=== PATIENT | male | born 1940 | race Caucasian/White ===

== ENCOUNTER 2017-06-23 06:55 | Inpatient (IN) | payer MEDICARE, OTHER ==
[~2017-06-23] VITALS: Ht 175.2 cm; Wt 93.2 kg
[2017-06-23] VITALS (15 sets, daily range): BP systolic 96–142; BP diastolic 53–95
--- NOTE | ~2017-06-23 | PR ---
[place], [place] PROGRESS NOTE NAME: SORAIDA ACOSTA UNIT #: [id number] ROOM: [facility] DOCTOR: RAUL PAULSON MD BIRTHDATE: [birth year] DOS: 06/26/2017 He is sitting in a recliner and is on BiPAP and is modestly short of breath. He is coughing up some phlegm, but no hemoptysis. He has no fever or chills and has not had any palpitations. PHYSICAL EXAMINATION: VITAL SIGNS: Temperature 98.1 degrees, blood pressure is 144/79. NECK: JVP is normal. CARDIOVASCULAR: Auscultation revealed distant heart sounds, no murmurs, no rub. There is no edema in the lower extremities. RESPIRATION: Rate is 22 per minute. Breath sounds are severely diminished with inspiratory and expiratory adventitious sounds. LABORATORY DATA: Monitor shows normal sinus rhythm. IMPRESSION: 1. Persistent atrial fibrillation/he is back in sinus rhythm now and he is on amiodarone, which he is tolerating nicely. 2. No evidence of heart failure. 3. Chronic obstructive pulmonary disease/lung disease, is quite severe and he is vent, on BiPAP support. No new recommendations. RAUL PAULSON MD CM:PNTRANS [id number] RAUL PAULSON MD 06/26/17 1157 interface
--- NOTE | ~2017-06-23 | CON ---
[place], [place] REPORT OF CONSULTATION NAME: SORAIDA ACOSTA UNIT #: [id number] ROOM: 530 DOCTOR: RA ROLON MDFLORIAN BIRTHDATE: [birth year] DOS: 06/24/2017 CONSULTATION REQUESTED BY: Hospitalist service. REASON FOR CONSULTATION: For assessment of symptoms of shortness of breath. HISTORY OF PRESENT ILLNESS: A 76-year-old white male, unknown to me with past known history of coronary artery disease as well as coronary artery bypass grafting in the past. The patient was seen in the Emergency Room. On the of this month as the patient woke up with severe pain, which he described at the retrosternal area with the diaphoresis. The patient came into the Emergency Room. He has been advised for hospitalization but the patient left against medical advice. As the patient went home, he took aspirin at home, stated partial relief of the symptoms, but the pain was not resolved completely. He was brought back to the hospital as he was convinced by the son. The patient come back to the hospital for similar symptoms. The patient was also noted symptoms of shortness breath, which was noted with [id number] exertion. Denies any symptoms of chest pain at the present time of the assessment. As the patient is treated in Intensive Care Unit, he does have mild cough with small amount of sputum expectoration. Some wheezing was also reported by the patient. The patient denies symptoms of chest trauma. REVIEW OF SYSTEMS: CONSTITUTIONAL SYMPTOMS: Fatigue and tiredness reported without symptoms of fever or chills. EYES: Denies any burning, redness, tenderness. EARS, NOSE, AND THROAT: Earache or other discharge. No sore throat, hoarseness, otalgia, postnasal drainage or epistaxis. CARDIOVASCULAR: Denies any palpitations. Denies any pain of the lower extremity. Current pain, which he described to be possible consistent with atypical chest pain was reported by the patient on this admission. GASTROINTESTINAL: No dysphagia, nausea, vomiting, diarrhea, abdominal pain, hematemesis, melena, or hematochezia. SKIN: Denies abnormal lesions or rashes. GENITOURINARY: No dysuria, suprapubic pain, or hematuria. MUSCULOSKELETAL: There were no joint pains. CENTRAL NERVOUS SYSTEM: There was no dizziness, headache, diplopia or syncopal episodes. Remaining systems were reviewed, they were noted all negative. PAST MEDICAL HISTORY: 1. Atrial fibrillation. 2. Coronary artery bypass grafting. 3. History of chronic obstructive pulmonary disease was also reported. 4. He was exposed to the asbestos. 5. Obesity. 6. History of right bundle branch block. PAST SURGICAL HISTORY: [place], [place] REPORT OF CONSULTATION NAME: SORAIDA ACOSTA UNIT #: [id number] ROOM: [facility] DOCTOR: FLORIAN HANSON MD BIRTHDATE: [birth year] 1. Coronary artery bypass grafting, 5 vessels several years ago. 2. Removal of metal from the eye. 3. Cardiac catheterization. SOCIAL HISTORY: The patient stated that he is , has one child lives at home. 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 Denies any history of alcohol use, illicit drug use or any tobacco use. FAMILY HISTORY: Father at the age 5555 years old from myocardial infarction. Mother at age 8383 years old from old age. HOME MEDICATIONS: None reported by the patient. DRUG ALLERGIES: No known drug allergies. PHYSICAL EXAMINATION: GENERAL: This is a 76-year-old male who has been currently sitting on the bed without any acute distress at time of assessment this morning. Height of 5 feet 9 inches, weight of 219 pounds, BMI 32.2. VITAL SIGNS: For the patient, which was recorded showed the heart rate was noted on admission with atrial fibrillation, rapid ventricular response of 162 beats per minute. Temperature normal, respiratory rate 25 at that time, 20 later. Heart rate at this time are noted 86. The blood pressure of patient ranged between 160/95-142/80. Intake is 1400 mL, output 1300 mL, since admission. Pulse oxygen saturation on 2 liters of nasal cannula for the patient was 91% saturation on room air, admission was 93% saturation. HEENT: Head was atraumatic. Eyes nonicterus. NECK: Supple. CARDIOVASCULAR: S1, S2 audible. LUNGS: Scattered crackles of the lung was noted with occasional wheezing. ABDOMEN: Soft, nontender, moderate obesity. EXTREMITIES: Without any edema, clubbing or cyanosis. CENTRAL NERVOUS SYSTEM: Cranial nerves 2-12 intact. MUSCULOSKELETAL: Without any acute deformities. LABORATORY DATA: CBC of the patient that was done yesterday on admission, WBC count 12.8, remaining CBC was completely normal. CMP yesterday on admission, normal BUN and creatinine. Troponin first set was 1.52. PT/PTT yesterday normal. Second set of troponin elevated as 2.25 and a max troponin of 2.47 was also noted yesterday as well. The CMP of the patient that was done this morning shows BUN and creatinine remains normal. Phosphorus 2.1. CBC this morning, WBC count 11.2, hemoglobin and hematocrit normal, platelet count remains normal. PT and PTT for the patient this morning was noted as normal. Arterial blood gas that I obtained 2 liters shows pH of 7.33, pCO2 of 56, pO2 of 67.6 on 2 liter nasal cannula. The blood culture, which was done on 06/22/2017 on his previous earlier assessment in the ER was noted as no bacterial growth. The review of the chest x-ray of the patient on the and of this month reviewed and shows basilar area of atelectasis, small pleural fluid was also noted. Chest x-ray that was done for the patient yesterday as well shows mild hyperinflation with persistent small pleural effusions. [place], [place] REPORT OF CONSULTATION NAME: SORAIDA ACOSTA UNIT #: [id number] ROOM: [facility] DOCTOR: RA ROLON MDFLORIAN BIRTHDATE: [birth year] IMPRESSION: 1. The patient will be currently admitted to the hospital and noted with acute hypercapnic and hypoxic respiratory failure requiring oxygen supplementation 2 liters nasal cannula to maintain normal saturation of oxygen with a pO2 noted only 62 on that. 2. The patient with non-ST segment elevation myocardial infarction, currently treated with conservative medical management at this time with therapeutic Lovenox. We will receive the unfractionated heparin therapeutic dose. 3. Atrial fibrillation with rapid ventricular response, most likely cardiac etiology. The patient had a CT scan of the chest that was done in 2015, precisely 04/12. It was reviewed at that time showed evidence of bilateral pleural fluid and evidence of a cyst was present in the right mid lung for the patient of unknown significance. There were no abnormal nodules visible. 4. Past history of this patient at this time with possibility of COPD may be considered, but there was no active acute exacerbation. PLAN OF MANAGEMENT: Continue his current conducted treatment with atrial fibrillation and non-ST segment elevation myocardial infarction. Start the patient BiPAP setting of 03/17 for the patient to improve his respiratory failure support. Bronchodilators only as needed. Oxygen supplementation to maintain saturation oxygen 90% greater, other time known use of BiPAP. Usual care. Supportive therapy, plan of management and care. Additional treatment changes will be made for the patient based on the progression of the illness. Thanks for allowing me to participate in the care of this patient. FLORIAN KNAPP MD CM:CONSTR:REPORT OF CONSULTATION 1133 07/06/17 0954 interface
--- NOTE | ~2017-06-23 | PR ---
[place], [place] PROGRESS NOTE NAME: SORAIDA ACOSTA UNIT #: [id number] ROOM: 530 DOCTOR: RA ROLON MD,FLORIAN BIRTHDATE: [birth year] DOS: 06/30/2017 SUBJECTIVE: He has been comfortably resting on the bed. The patient's sputum expectoration still noted intermittently, moderate amount of purulent. Denies symptoms of chest pain or shortness of breath. The patient is improving. General weakness and fatigue were reported, which are resolving. OBJECTIVE: VITAL SIGNS: This morning, normal temperature, respiratory rate 20, heart rate 69, blood pressure 120/69. The pulse oxygen saturation on 4 liters nasal cannula 92% saturation. HEENT: No acute change. NECK: Supple. CARDIOVASCULAR: S1, S2 audible. LUNGS: Without any wheeze or crackles at this time. Breaths are noted mildly diminished bilaterally. ABDOMEN: Soft, nontender. EXTREMITIES: Without any edema. LABORATORY DATA: CBC: WBC count 12.1 today. IMPRESSION: 1. Acute pneumonia for the patient that was noted with superimposed congestive heart failure, improving gradually. 2. The patient with resolving acute hypoxic respiratory failure as well. Still require significant oxygen supplementation. 3. Recent non-ST segment elevation myocardial infarction. PLAN OF TREATMENT: Discharge planning, possible consideration for the retirement facility as the patient refused to go to the LTAC. Continuation other supportive therapy, plan of management. FLORIAN KNAPP MD CM:PNTRANS 1154 FLORIAN ROLON MD 07/01/17 0038 interface
--- NOTE | ~2017-06-23 | PR ---
[place], [place] PROGRESS NOTE NAME: SORAIDA ACOSTA UNIT #: [id number] ROOM: [facility] DOCTOR: RA ROLON MD,FLORIAN BIRTHDATE: [birth year] DOS: 06/25/2017 SUBJECTIVE: The patient was noted comfortable at this time, but still noted excessive cough, which has been noted with sputum expectoration. The patient denies symptoms of hemoptysis or any chest pain. He has used the BiPAP yesterday for the medical management of respiratory failure. He denies any symptoms of hematuria. He denies symptoms of hemoptysis. Remaining systems were reviewed. The patient, they were noted all negative. OBJECTIVE: VITAL SIGNS: For the patient, which has been recorded. The patient shows the temperature noted as 101 degrees Fahrenheit yesterday and afebrile this morning, respiratory rate 20, heart rate 76, blood pressure 112/57, pulse oxygen saturation recorded as 96% on 4 liters nasal cannula. HEENT: Examination shows head was atraumatic. Eyes, nonicterus. NECK: Supple. Moderate obesity. CARDIOVASCULAR: S1, S2 audible. LUNGS: Moderate decreased breath sounds without any wheezing or crackles at this time. Breaths are noted moderately decreased bilaterally. ABDOMEN: Soft, nontender. EXTREMITIES: Without any acute edema. LABORATORY DATA: CBC, WBC count 11.4, hemoglobin 13.5, hematocrit 42.2, platelet count was normal. Sputum culture was noted as a Haemophilus influenzae, which had been isolated beta lactamase negative species. IMPRESSION: 1. Fever. 2. Acute bronchitis with influenza infection. 3. Severe debility. 4. Acute hypercapnic and hypoxic respiratory failure. 5. Moderate obesity. 6. Non-ST segment elevation myocardial infarction as well. PLAN OF THERAPY: The patient will be started on the antibiotic for the current medical management of bronchitis. Continuation of the anticoagulation per Cardiology services. With use of the Coumadin and with the Lovenox, the patient's atrial fibrillation resolved. 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 Xopenex will be continued. Other supportive therapy, plan of management and care plan. [place], [place] PROGRESS NOTE NAME: SORAIDA ACOSTA UNIT #: [id number] ROOM: [facility] DOCTOR: RA ROLON MD,FLORIAN BIRTHDATE: [birth year] FLORIAN KNAPP MD CM:PNTRANS [id number] FLORIAN ROLON MD 06/26/17 0421 interface
--- NOTE | ~2017-06-23 | PR ---
[place], [place] PROGRESS NOTE NAME: SORAIDA ACOSTA UNIT #: [id number] ROOM: 530 DOCTOR: BETHEL DIANE MD BIRTHDATE: [birth year] DOS: 07/01/2017 SUBJECTIVE: The patient examined. The patient has been evaluated to be transferred to skilled care facility. No cardiac issues. Heart rate is very well controlled. OBJECTIVE: VITAL SIGNS: Blood pressure is 124/73, pulse ox is excellent 92%. NECK: Supple. No JVD. LUNGS: Diminished breath sounds. HEART: Heart sounds are regular. NEUROLOGIC: The patient appears to be stable. The patient is being followed by Dr. Ludwig and being followed up. LABORATORY DATA: White count is 12.1. IMPRESSION: Acute pneumonia, history of atrial fibrillation, hypoxic respiratory failure, and history of recent non-STEMI. PLAN: Continue with the present medication. Heart rate appears to be stable. No new suggestions and followup. BETHEL DIANE MD CM:PNTRANS [id number] BETHEL DIANE MD 07/01/17 1344 interface
--- NOTE | ~2017-06-23 | PR ---
[place], [place] PROGRESS NOTE NAME: SORAIDA ACOSTA UNIT #: [id number] ROOM: [facility] DOCTOR: RA ROLON MD,FLORIAN BIRTHDATE: [birth year] DOS: 06/27/2017 PULMONARY FOLLOWUP SUBJECTIVE: The patient was noted comfortable at this time, resting on the bed, used the BiPAP last night using oxygen supplementation 50% Venturi mask. Denies symptoms of chest pain or any hemoptysis. Denies abdominal pain. Denies any pain of the lower extremity. The patient noted mostly sitting on the chair or the bed. General weakness and fatigue persisted. Denies any dysphagia. Remaining systems were reviewed. They were noted all negative. OBJECTIVE: VITAL SIGNS: Normal temperature, respiratory rate 22, heart rate 84, blood pressure 145/90. Pulse oxygen saturation on 40% Venturi mask was 92% saturation with the BiPAP was 98% saturation. HEENT: The patient shows head was atraumatic. Eyes nonicterus. NECK: Supple. CARDIOVASCULAR: S1, S2 was audible. LUNGS: Noted with moderate decreased breath sounds, scattered crackles of the lung mid to lower portion. ABDOMEN: Soft, nontender. EXTREMITIES: Shows mild edema with no skin lesions or rashes. MUSCULOSKELETAL SYMPTOMS without any acute deformities. CENTRAL NERVOUS SYSTEM: Cranial nerves 2-12 intact without any focal deficit. LABORATORY DATA: CBC today: WBC count 12,000, hemoglobin 12.2, hematocrit 38.1, platelet count 186,000. CMP this morning, glucose 121, BUN 14, creatinine was normal, sodium 135, CO2 of 39. The culture of the sputum finalized the gram negative rather beta lactamase negative Haemophilus influenza. IMPRESSION: 1. The patient with acute congestive heart failure, persistent severe acute hypoxic respiratory failure. 2. Non-ST segment elevation myocardial infarction. 3. Haemophilus influenzae isolation possible pneumonia versus acute bronchitis. The pneumonia difficult to be excluded recurrent abnormal chest x-ray. 4. Moderate obesity as well. 5. Suspicion of obstructive sleep apnea disorder, clinically. PLAN OF MANAGEMENT: The patient would be continued the current antibiotics, bronchodilators, diuretics to be given for the patient to help improve the congestive heart failure, and pulmonary edema. The patient could be considered for long-term acute care facility assessment for this patient as well. If only conservative treatment at this time would be done for this patient for the management of acute myocardial infarction. Physical therapy, the patient as tolerated. Other supportive plan of management. Continue adjust the medication based on the new information. [place], [place] PROGRESS NOTE NAME: SORAIDA ACOSTA UNIT #: [id number] ROOM: [facility] DOCTOR: FLORIAN HANSON MD BIRTHDATE: [birth year] FLORIAN KNAPP MD CM:PNTRANS [id number] FLORIAN ROLON MD 06/27/17 1420 interface
--- NOTE | ~2017-06-23 | PR ---
[place], [place] PROGRESS NOTE NAME: SORAIDA ACOSTA UNIT #: [id number] ROOM: [facility] DOCTOR: RAUL PAULSON MD BIRTHDATE: [birth year] DOS: 06/24/2017 SUBJECTIVE: This patient was admitted a couple of days ago with atrial fibrillation with rapid ventricular rate and respiratory failure due to underlying lung disease, compounded by infection. Today he was somewhat more hypoxic through the night and has been on BiPAP. He is alert. He has no chest pain or palpitation. Monitor shows normal sinus rhythm with frequent PACs and right bundle-branch block. OBJECTIVE: NECK: JVP is normal. LUNGS: Breath sounds are severely diminished with rhonchi. EXTREMITIES: No edema in lower extremities. LABORATORY DATA: Monitor shows normal sinus rhythm with PACs, rate is in the 80s. RECOMMENDATIONS: 1. IV diltiazem has been discontinued. I would recommend oral diltiazem 60 mg t.i.d. 2. Amiodarone to maintain normal sinus rhythm should be continued. 3. Warfarin because of high EVERETT score, because of concomitant use of amiodarone, warfarin dose is likely to be little smaller. RAUL PAULSON MD CM:PNTRANS [id number] RAUL PAULSON MD 06/24/17 1353 interface
--- NOTE | ~2017-06-23 | PR ---
[place], [place] PROGRESS NOTE NAME: SORAIDA ACOSTA UNIT #: [id number] ROOM: [facility] DOCTOR: RA ROLON MD,FLORIAN BIRTHDATE: [birth year] DOS: 06/28/2017 SUBJECTIVE: He has been coughing, which has been gradually improving. Still requires oxygen supplementation with the nasal cannula. Denies symptoms of chest pain or hemoptysis. Denies symptoms of abdominal pain. He has been asked about the long-term care facility placement, but the patient refused to do so. He has been continued medical management of congestive heart failure as well as acute bronchitis, suspected pneumonia with Haemophilus influenzae. The oxygen supplementation has been noted partially decreased for the patient in the last 24 hours. This morning, the patient was noted on oxygen supplementation nasal cannula, resting comfortably on the bed. He denies any symptoms of dizziness, headache. Remaining systems were reviewed and that were noted all negative. OBJECTIVE: VITAL SIGNS: Shows normal temperature, respiratory rate 18, heart rate 87, blood pressure 135/82. Pulse oxygen saturation on 3 liters nasal cannula 95% saturation. HEENT: Examination shows head was atraumatic. Eyes nonicterus. NECK: Supple. CARDIOVASCULAR: S1, S2 audible. LUNGS: Noted with scattered crackles of the lung. There was no wheezing. ABDOMEN: Soft, nontender. Bowel sounds present. EXTREMITIES: Without any acute edema. MUSCULOSKELETAL: Without any acute deformities. SKIN: No lesions or rashes. CENTRAL NERVOUS SYSTEM: No focal deficit. Cranial nerves 2-12 intact. LABORATORY DATA: CMP this morning, BUN 17, creatinine was normal, sodium 135. CV patient today to the count 11.7, hemoglobin 14.5, hematocrit 44.4. IMPRESSION: 1. The patient who has been noted with resolving acute severe hypoxic respiratory failure. 2. Non-ST segment elevation myocardial infarction. 3. Acute congestive heart failure. 4. Possibility of pneumonia and acute tracheobronchitis. The patient Haemophilus influenza infection. PLAN OF MANAGEMENT: Repeat chest x-ray was ordered at this time. The patient has been continued on the diuretic intravenously as well as Xarelto for his atrial fibrillation as well. Continue the conservative treatment non-ST segment elevation myocardial infarction. Physical therapy, the patient would be given as tolerated. Other supportive therapy, plan of management and care plan. [place], [place] PROGRESS NOTE NAME: SORAIDA ACOSTA UNIT #: [id number] ROOM: [facility] DOCTOR: RA ROLON MD,FLORIAN BIRTHDATE: [birth year] FLORIAN KNAPP MD CM:PNTRANS [id number] 1343 FLORIAN ROLON MD 06/28/17 1343 interface
--- NOTE | ~2017-06-23 | PR ---
[place], [place] PROGRESS NOTE NAME: SORAIDA ACOSTA UNIT #: [id number] ROOM: 530 DOCTOR: RA ROLON MD,FLORIAN BIRTHDATE: [birth year] DOS: 06/29/2017 SUBJECTIVE: The patient was noted comfortable at this time, has expectorated significant amount of sputum in the last 24 hours. Shortness of breath has been improving. There were no symptoms of chest pain or any abdominal pain. OBJECTIVE: VITAL SIGNS: For the patient, which has been recorded showed the temperature noted normal, respiratory 18, heart rate 85, blood pressure 118/80, pulse ox saturation on 4 L nasal cannula 93% saturation. HEENT: No acute change. NECK: Supple. CARDIOVASCULAR: No added sounds. LUNGS: Crackles noted in the right lung base. ABDOMEN: Soft, nontender. EXTREMITIES: Without any acute edema. LABORATORY DATA: CBC count 12.1, otherwise normal CBC. Chest x-ray that was done yesterday I ordered shows area of infiltration, consolidation of right lower lung with improvement noted and congestive heart failure and pleural effusion. IMPRESSION: The patient could have pneumonia with acute bronchitis, resolving acute respiratory failure secondary to congestive heart failure, recent non-ST segment elevation myocardial infarction. PLAN OF TREATMENT: Antibiotic. The patient could be switched to the Ceftin 500 mg p.o. b.i.d. or Rocephin to be continued at this time. Continue other supportive therapy, plan of management. Usual care, other plan of therapy and care. FLORIAN KNAPP MD CM:PNTRANS [phone] FLORIAN ROLON MD 06/29/17 225 interface
--- NOTE | ~2017-06-23 | PR ---
[place], [place] PROGRESS NOTE NAME: SORAIDA ACOSTA UNIT #: [id number] ROOM: 530 DOCTOR: RA ROLON MD,FLORIAN BIRTHDATE: [birth year] DOS: 07/01/2017 PULMONARY FOLLOWUP SUBJECTIVE: The patient is comfortable, resting on the chair without any acute shortness of breath. Denies symptoms of chest pain, hemoptysis, or abdominal pain. The cough has been noted with progressive reduction as well as sputum expectoration also reported by the patient. OBJECTIVE: VITAL SIGNS: For the patient which was recorded, the patient showed the temperature patient noted as normal. The respiratory rate of the patient recorded as 18, heart rate 78, blood pressure 124/73. The pulse oxygen saturation on a 3.5 L nasal cannula 92% saturation. HEENT: No new change. NECK: Supple. CARDIOVASCULAR: S1, S2 audible. LUNGS: Without any crackles, rhonchi, or wheezing at this time except in the right mid lung. ABDOMEN: Soft, nontender. EXTREMITIES: Without any acute edema. IMPRESSION: Resolving acute pneumonia, gradually; Haemophilus influenza infection; acute tracheobronchitis, marked improvement; and acute congestive heart failure. Recent non-ST segment myocardial infarction, treated medically, remained stable. PLAN OF THERAPY: No changes in the plan of management at this time. The patient was planned for discharge to the half-way facility upon acceptance and authorization from the insurance. No immediate change in the treatment will be necessary. A chest x-ray will be ordered for the patient to assess the patient's progression of the pneumonia. FLORIAN KNAPP MD CM:PNTRANS [phone] FLORIAN ROLON MD 07/01/172043 interface
--- NOTE | ~2017-06-23 | CON ---
[place], [place] REPORT OF CONSULTATION NAME: SORAIDA ACOSTA UNIT #: [id number] ROOM: 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 He has right bundle-branch block. He had 5-vessel coronary artery bypass graft surgery in the remote past and has never smoked cigarettes, does not use alcoholic beverages. He had been on several medications previously and had quit taking all of them ____. He was admitted to the hospital through the Emergency Department where he presented with some chest heaviness and pressure and quite a bit of shortness of breath. He was diagnosed with atrial fibrillation the day before this admission, apparently did not want to stay in the hospital, but came back because of worsening symptoms. He was very hypoxic on admission. He is not aware of his heart beating fast. He has no chest pain now. He has a cough with some expectoration. No swelling in the legs. He is very short of breath even at rest. He has been on IV diltiazem to slow down the ventricular rate and also is receiving treatment for his lungs/hypoxia. PHYSICAL EXAMINATION: GENERAL: This is a patient who is very anxious and somewhat restless. Complexion is fine. He is very tachypneic. He has oxygen on. VITAL SIGNS: Temperature is normal, pulse is irregular at 96 beats per minute, blood pressure 117/76. NECK: JVP is normal. No bruit in the neck. CARDIAC: Auscultation reveals somewhat distant heart sounds, but no murmurs. Heart rate is irregular. He has no edema in the lower extremities and the pedal pulses are somewhat bounding. RESPIRATORY: He is tachypneic and auscultation reveals severely reduced breath sounds bilaterally with rhonchi and some crackles. IMPRESSION: 1. This patient has atrial fibrillation with rapid ventricular rate, which is being controlled with IV Cardizem. 2. Respiratory failure, probably from asbestos lung and infection. RECOMMENDATIONS: An echocardiogram has already been done and I will review that. He is currently on Cardizem. IV Cardizem has been switched off. I think oral diltiazem 60 mg b.i.d. should be started if heart rate is not adequately tamed, then I think larger dose of sustained release preparation should be used. Chronic anticoagulation is very important in this man because of high CHADS score. [facility]. It is not clear if they would offer him direct thrombin inhibitor. In the meantime, warfarin should be started. [place], [place] REPORT OF CONSULTATION NAME: SORAIDA ACSOTA UNIT #: [id number] ROOM: [facility] DOCTOR: RAUL PAULSON MD BIRTHDATE: [birth year] To maintain normal rhythm, which he is in at this time, addition of amiodarone would be a good idea. I would use a larger dose for the first week or so and then 200 mg once a day. I thank you for this consult. RAUL PAULSON MD CM:CONSTR:REPORT OF CONSULTATION 1254 06/24/17 1350 interface
--- NOTE | ~2017-06-23 | PR ---
[place], [place] PROGRESS NOTE NAME: SORAIDA ACOSTA UNIT #: [id number] ROOM: [facility] DOCTOR: RA ROLON MD,FLORIAN BIRTHDATE: [birth year] DOS: 06/26/2017 SUBJECTIVE: He has been comfortably sitting on the chair this morning. He has been noted on oxygen supplementation with simple face mask. The patient has used the BiPAP last night. Denies symptoms of chest pain or any acute hemoptysis. Denies symptoms of abdominal pain. There were symptoms of nausea and vomiting. He denies any pain or edema of the lower extremities. He was still noted any weakness and fatigue. Remaining system review was normal. OBJECTIVE: VITAL SIGNS: Temperature 99.2 degrees Fahrenheit to normal temperature, respiratory rate 18, heart rate 78, blood pressure 114/79. The pulse oxygen saturation 40% oxygen Venturi mask was 96% saturation, BiPAP 35, 98 percent saturation of oxygen. HEENT: Examination shows head was atraumatic. Eyes nonicterus. NECK: Supple. CARDIOVASCULAR: S1, S2 is audible. LUNGS: The patient was noted without any wheezing or crackles at the present time. Breaths are noted mildly diminished bilaterally. ABDOMEN: Soft. Moderate obesity. EXTREMITIES: Noted mild edema. VISIBLE SKIN: No lesions or rashes. GENITOURINARY: Without any deformities. LABORATORY DATA: The chest x-ray of the patient done this morning shows evidence of patchy infiltration versus pulmonary edema, congestive heart failure finding. IMPRESSION: 1. The patient with acute pneumonia cannot be completely excluded for the patient secondary to Haemophilus influenzae infection with non-ST segment elevation myocardial infarction. 2. Acute respiratory failure for the patient was also noted with increased oxygen requirement secondary to congestive heart failure, pulmonary edema picture. 3. Chronic moderate obesity. PLAN OF THERAPY: No changes in the plan of therapy for the patient at this time. Close cardiology followup for this patient to be done. Diuretic therapy to be given. Bronchodilators. Continue medical management non-ST segment elevation acute myocardial infarction as well. Continue the BiPAP for the patient's respiratory failure management. Continue antibiotics. Usual care, other supportive plan of therapy and management, plan of care. [place], [place] PROGRESS NOTE NAME: SORAIDA ACOSTA UNIT #: [id number] ROOM: [facility] DOCTOR: FLORIAN HANSON MD BIRTHDATE: [birth year] FLORIAN KNAPP MD CM:CHARLIE [phone] FLORIAN ROLON MD 06/26/17 1813 interface
--- NOTE | ~2017-06-23 | PR ---
[place], [place] PROGRESS NOTE NAME: SORAIDA ACOSTA UNIT #: [id number] ROOM: [facility] DOCTOR: RAUL PAULSON MD BIRTHDATE: [birth year] DOS: 06/25/2017 He is sitting in the chair, has BiPAP on. He is fairly short of breath. No chest pain or palpitations. Yesterday, he was started on warfarin and amiodarone. He has no chest pain, dry cough. No palpitation. PHYSICAL EXAMINATION: VITAL SIGNS: Temperature is normal at 98.9 degrees, pulse is 76 and regular. Blood pressure 115/55. NECK: Normal JVP. EXTREMITIES: No edema in the lower extremities. LUNGS: auscultation reveals at least moderately reduced breath sounds with adventitious sounds, mostly during inspiration and had some expression crackles, but no wheezing. LABORATORY DATA: Monitor shows normal sinus with a heart rate in the 70s. IMPRESSION: This patient has paroxysmal atrial fibrillation. He is now in sinus rhythm, and amiodarone and warfarin should be continued. In about a week or so, dose of amiodarone needs to be reduced to 200 mg once a day. There is no evidence of cardiac decompensation. Chronic lung disease is from exposure to toxins and also asbestos. No new recommendations. RAUL PAULSON MD CM:PNTRANS [id number] RAUL PAULSON MD 06/25/17 1354 interface
--- NOTE | ~2017-06-23 | PR ---
[place], [place] PROGRESS NOTE NAME: SORAIDA ACOSTA UNIT #: [id number] ROOM: [facility] DOCTOR: BETHEL DIANE MD BIRTHDATE: [birth year] DOS: 06/23/2017 SUBJECTIVE: The patient was examined at the Intensive Care Unit. The patient still complains of shortness of breath, but he states that he is getting better. The patient was seen by Dr. Perkins yesterday. The patient has a history of atrial fibrillation. He is back into sinus rhythm. His blood pressure today is 140/90. He is in sinus rhythm, heart rate is 84. Fluid balance is negative, positive 180. REVIEW OF SYSTEMS: Somewhat limited as the patient is in the Intensive Care Unit, but denies any chest discomfort. Does have shortness of breath. No nausea. No vomiting. No issues. No neurological issues. PHYSICAL EXAMINATION: VITAL SIGNS: Blood pressure today, as mentioned he is in sinus rhythm. Afebrile. Respiratory rate is about 20-22. Monitor shows sinus rhythm. NECK: Supple. No JVD. CARDIOVASCULAR: Auscultation revealed distant heart sounds. No murmur. No rub. EXTREMITIES: No edema. LABORATORY DATA: Shows hemoglobin 12.2 and hematocrit 38.1. Sodium 135, potassium 3.9, and creatinine is 0.7. Liver functions are normal. Vitamin D is decreased to be 4.8. IMPRESSION: History of paroxysmal atrial fibrillation, back in sinus rhythm, on amiodarone, which he is tolerating nicely. No evidence of heart failure, chronic obstructive pulmonary disease, lung disease, quite severe; and he is on the BiPAP support. The patient is being managed closely by Dr. Ludwig. The patient also has complete acute pneumonia completely excluded secondary to Haemophilus influenzae infection and type 2 myocardial infarction most probably and chronic obesity. PLAN: Continue the present care. We will review the echocardiogram if it is not done in 6 months and I will follow up. Dr. Perkins had seen the patient. [place], [place] PROGRESS NOTE NAME: SORAIDA ACOSTA UNIT #: [id number] ROOM: [facility] DOCTOR: BETHEL DIANE MD BIRTHDATE: [birth year] BETHEL DIANE MD CM:PNTRANS [id number] BETHEL DIANE MD 06/27/17 0750 interface
[~2017-06-23 06:55] MED LIST: ASPIRIN ADULT L81 M2 PO; ASPIRIN81 M1 PO; ATORVASTATIN CA80 M1 PO; COREG3.125 MG PO; Carafate1 GM/10 ML PO; Coumadin5 MG PO; DUONEB 3 MG/3 ML3 M1 NEB; FUROSEMIDE20 M1 PO; JANTOVEN5 MG PO; LANOXIN0.125 MG PO; LIPITOR80 MG PO; LISINOPRIL10 M1 PO; LISINOPRIL5 MG PO; TOPROL XL50 M1 PO; VENTOLIN H0.09 MG/AC INH; ZESTRIL5 MG PO
[2017-06-23 07:25] LABS: BASO % 0.3 % (0.0-1.0); EOS % 0.2 % (1.0-4.0); HEMATOCRIT 44.2 % (42.0-52.0); HEMOGLOBIN 14.8 g/dl (14.0-18.0); LYMPH # 0.6 10*3/uL (1.3-4.4); LYMPH % 4.9 % (27.0-41.0); MEAN CELL VOLUME 92.9 fl (80.0-94.0); MEAN CORPUSCULAR HGB 31.1 pg (27.0-31.0); MEAN CORPUSCULAR HGB CONC 33.5 g/dl (33.0-37.0); MEAN PLATELET VOLUME 10.2 fl (9.6-12.3); MONO # 1.2 10*3/uL (0.1-1.0); MONO % 9.3 % (3.0-9.0); NEUT # 10.8 10*3/uL (2.3-7.9); PLATELET COUNT AUTOMATED 161 10*3/uL (130-400); RED BLOOD COUNT 4.76 10*6/uL (4.50-5.90); RED CELL DISTRI WIDTH 12.2 % (0-14.5); WHITE BLOOD COUNT 12.8 10*3/uL (4.8-10.8)
[2017-06-23 07:34] LABS: ACT PARTIAL THROMBO TIME 27.6 SECONDS (20.8-31.5)
[2017-06-23 07:41] LABS: ALBUMIN 3.5 gm/dl (3.1-4.5); ALKALINE PHOSPHATASE 88 U/L (45-117); BUN 18 mg/dl (7-24); CHLORIDE 101 mmol/L (98-107); CREATININE 0.85 mg/dL (0.70-1.30); POTASSIUM 3.8 mmol/L (3.5-5.1); SGOT/AST 27 IU/L (3-35); SGPT/ALT 15 U/L (12-78); SODIUM 137 mmol/L (136-145); TOTAL PROTEIN 7.1 gm/dL (6.4-8.2)
[2017-06-24] VITALS (8 sets, daily range): BP systolic 119–142; BP diastolic 43–88
[2017-06-24 05:34] LABS: ALKALINE PHOSPHATASE 80 U/L (45-117); BUN 16 mg/dl (7-24); CHLORIDE 100 mmol/L (98-107); CHOLESTEROL 121 mg/dL (<200); CREATININE 0.67 mg/dL (0.70-1.30); FREE T4 1.53 ng/dl (0.76-1.46); HDL CHOLESTEROL 45 mg/dl (40-60); LDL CHOLESTEROL 64 mg/dL (9-159); PHOSPHOROUS 2.1 mg/dL (2.5-4.9); POTASSIUM 3.9 mmol/L (3.5-5.1); SGOT/AST 20 IU/L (3-35); SGPT/ALT 14 U/L (12-78); SODIUM 137 mmol/L (136-145); TOTAL PROTEIN 6.5 gm/dL (6.4-8.2); TRIGLYCERIDES 59 mg/dl (<150); VLDL CHOLESTEROL 12 mg/dL (6-40)
[2017-06-24 05:39] LABS: THYROID STIM HORMONE (HS) 0.445 uIU/ml (0.358-4.75)
[2017-06-24 06:01] LABS: BASO # 0.1 10*3/uL (0.0-0.1); BASO % 0.4 % (0.0-1.0); EOS % 0.1 % (1.0-4.0); HEMATOCRIT 42.7 % (42.0-52.0); HEMOGLOBIN 14.3 g/dl (14.0-18.0); LYMPH # 0.5 10*3/uL (1.3-4.4); LYMPH % 4.1 % (27.0-41.0); MEAN CELL VOLUME 94.7 fl (80.0-94.0); MEAN CORPUSCULAR HGB 31.7 pg (27.0-31.0); MEAN CORPUSCULAR HGB CONC 33.5 g/dl (33.0-37.0); MEAN PLATELET VOLUME 10.3 fl (9.6-12.3); MONO # 1.4 10*3/uL (0.1-1.0); MONO % 12.1 % (3.0-9.0); NEUT # 9.3 10*3/uL (2.3-7.9); PLATELET COUNT AUTOMATED 153 10*3/uL (130-400); RED BLOOD COUNT 4.51 10*6/uL (4.50-5.90); RED CELL DISTRI WIDTH 12.2 % (0-14.5); WHITE BLOOD COUNT 11.2 10*3/uL (4.8-10.8)
[2017-06-24 06:04] LABS: ACT PARTIAL THROMBO TIME 29.9 SECONDS (20.8-31.5)
[2017-06-24 07:28] LABS: VITAMIN D, 25-HYDROXY 4.6 ng/mL (30-100)
[2017-06-24 10:57] LABS: ABG BASE EXCESS 2.9 mmol/L (-2.0-2.0); ABG HCO3 29.5 mmol/l (22-26); ABG O2 SATURATION 93.4 % (95-97); ARTERIAL BLOOD GAS PCO2 56.6 mmHg (35-45); ARTERIAL BLOOD GAS PH 7.337 (7.35-7.45); ARTERIAL BLOOD GAS PO2 67.6 mmHg (80-90)
[2017-06-25] VITALS (8 sets, daily range): BP systolic 103–141; BP diastolic 55–87
[2017-06-25 05:19] LABS: ALBUMIN 2.7 gm/dl (3.1-4.5); ALKALINE PHOSPHATASE 77 U/L (45-117); BUN 19 mg/dl (7-24); CHLORIDE 98 mmol/L (98-107); CREATININE 0.69 mg/dL (0.70-1.30); SGOT/AST 15 IU/L (3-35); SGPT/ALT 16 U/L (12-78); SODIUM 137 mmol/L (136-145); TOTAL PROTEIN 6.4 gm/dL (6.4-8.2)
[2017-06-25 05:31] LABS: INTERNATIONAL NORM RATIO 1.1 (2.0-3.5)
[2017-06-25 05:48] LABS: BASO % 0.2 % (0.0-1.0); HEMATOCRIT 42.2 % (42.0-52.0); HEMOGLOBIN 13.5 g/dl (14.0-18.0); LYMPH # 0.5 10*3/uL (1.3-4.4); LYMPH % 4.6 % (27.0-41.0); MEAN CELL VOLUME 95.7 fl (80.0-94.0); MEAN CORPUSCULAR HGB 30.6 pg (27.0-31.0); MEAN PLATELET VOLUME 10.1 fl (9.6-12.3); MONO # 1.2 10*3/uL (0.1-1.0); MONO % 10.7 % (3.0-9.0); NEUT # 9.6 10*3/uL (2.3-7.9); NEUT % 84.2 % (47.0-73.0); PLATELET COUNT AUTOMATED 153 10*3/uL (130-400); RED BLOOD COUNT 4.41 10*6/uL (4.50-5.90); WHITE BLOOD COUNT 11.4 10*3/uL (4.8-10.8)
[2017-06-26] VITALS: BP 149/78
[2017-06-26 04:00] VITALS: BP 144/79
[2017-06-26 05:12] LABS: BUN 21 mg/dl (7-24); CHLORIDE 94 mmol/L (98-107); CREATININE 0.81 mg/dL (0.70-1.30); POTASSIUM 4.4 mmol/L (3.5-5.1); SODIUM 135 mmol/L (136-145)
[2017-06-26 06:15] LABS: BASO % 0.3 % (0.0-1.0); EOS % 0.1 % (1.0-4.0); HEMATOCRIT 41.4 % (42.0-52.0); HEMOGLOBIN 13.2 g/dl (14.0-18.0); LYMPH # 0.3 10*3/uL (1.3-4.4); LYMPH % 2.1 % (27.0-41.0); MEAN CELL VOLUME 96.1 fl (80.0-94.0); MEAN CORPUSCULAR HGB 30.6 pg (27.0-31.0); MEAN CORPUSCULAR HGB CONC 31.9 g/dl (33.0-37.0); MEAN PLATELET VOLUME 10.1 fl (9.6-12.3); MONO # 1.4 10*3/uL (0.1-1.0); MONO % 10.5 % (3.0-9.0); NEUT # 11.3 10*3/uL (2.3-7.9); NEUT % 86.4 % (47.0-73.0); PLATELET COUNT AUTOMATED 182 10*3/uL (130-400); RED BLOOD COUNT 4.31 10*6/uL (4.50-5.90); RED CELL DISTRI WIDTH 11.9 % (0-14.5); WHITE BLOOD COUNT 13.1 10*3/uL (4.8-10.8)
[2017-06-26 08:00] VITALS: BP 144/79
[2017-06-26 12:00] VITALS: BP 131/82
[2017-06-26 20:00] VITALS: BP 129/72
[2017-06-27] VITALS: BP 131/66
[2017-06-27 04:00] VITALS: BP 145/90
[2017-06-27 04:49] LABS: BASO % 0.3 % (0.0-1.0); EOS % 0.3 % (1.0-4.0); HEMATOCRIT 38.1 % (42.0-52.0); HEMOGLOBIN 12.2 g/dl (14.0-18.0); LYMPH # 0.6 10*3/uL (1.3-4.4); LYMPH % 4.6 % (27.0-41.0); MEAN CELL VOLUME 95.3 fl (80.0-94.0); MEAN CORPUSCULAR HGB 30.5 pg (27.0-31.0); MEAN PLATELET VOLUME 9.3 fl (9.6-12.3); MONO # 1.1 10*3/uL (0.1-1.0); MONO % 9.3 % (3.0-9.0); NEUT # 10.1 10*3/uL (2.3-7.9); NEUT % 84.5 % (47.0-73.0); PLATELET COUNT AUTOMATED 186 10*3/uL (130-400); RED CELL DISTRI WIDTH 11.8 % (0-14.5)
[2017-06-27 05:09] LABS: ALBUMIN 2.4 gm/dl (3.1-4.5); BUN 14 mg/dl (7-24); CHLORIDE 93 mmol/L (98-107); CREATININE 0.74 mg/dL (0.70-1.30); POTASSIUM 3.9 mmol/L (3.5-5.1); SGOT/AST 13 IU/L (3-35); SGPT/ALT 17 U/L (12-78); SODIUM 135 mmol/L (136-145)
[2017-06-27 05:11] LABS: ALKALINE PHOSPHATASE 84 U/L (45-117); TOTAL PROTEIN 6.2 gm/dL (6.4-8.2)
[2017-06-27 08:00] VITALS: BP 140/66
[2017-06-27 12:00] VITALS: BP 116/74
[2017-06-27 16:00] VITALS: BP 108/72
[2017-06-27 20:00] VITALS: BP 126/72
[2017-06-28] VITALS: BP 144/87
[2017-06-28 04:00] VITALS: BP 135/82
[2017-06-28 05:38] LABS: ALBUMIN 2.7 gm/dl (3.1-4.5); ALKALINE PHOSPHATASE 95 U/L (45-117); BUN 17 mg/dl (7-24); CHLORIDE 89 mmol/L (98-107); CREATININE 0.75 mg/dL (0.70-1.30); POTASSIUM 3.5 mmol/L (3.5-5.1); SGOT/AST 26 IU/L (3-35); SGPT/ALT 20 U/L (12-78); SODIUM 135 mmol/L (136-145); TOTAL PROTEIN 7.1 gm/dL (6.4-8.2)
[2017-06-28 06:21] LABS: BASO # 0.1 10*3/uL (0.0-0.1); BASO % 0.4 % (0.0-1.0); EOS # 0.1 10*3/uL (0.0-0.4); EOS % 0.5 % (1.0-4.0); LYMPH # 0.6 10*3/uL (1.3-4.4); LYMPH % 4.8 % (27.0-41.0); MEAN CELL VOLUME 94.5 fl (80.0-94.0); MEAN CORPUSCULAR HGB 30.9 pg (27.0-31.0); MEAN CORPUSCULAR HGB CONC 32.7 g/dl (33.0-37.0); MEAN PLATELET VOLUME 9.7 fl (9.6-12.3); MONO # 1.2 10*3/uL (0.1-1.0); MONO % 10.2 % (3.0-9.0); NEUT # 9.7 10*3/uL (2.3-7.9); NEUT % 82.8 % (47.0-73.0); PLATELET COUNT AUTOMATED 226 10*3/uL (130-400); RED CELL DISTRI WIDTH 11.9 % (0-14.5); WHITE BLOOD COUNT 11.7 10*3/uL (4.8-10.8)
[2017-06-28 06:26] LABS: HEMATOCRIT 44.4 % (42.0-52.0); HEMOGLOBIN 14.5 g/dl (14.0-18.0)
[2017-06-28 08:00] VITALS: BP 122/64
[2017-06-28 12:00] VITALS: BP 132/79
[2017-06-28 16:00] VITALS: BP 134/80
[2017-06-28 20:00] VITALS: BP 125/63
[2017-06-29] VITALS: BP 127/67
[2017-06-29 06:10] LABS: BASO # 0.1 10*3/uL (0.0-0.1); BASO % 0.6 % (0.0-1.0); EOS # 0.2 10*3/uL (0.0-0.4); EOS % 1.4 % (1.0-4.0); HEMATOCRIT 46.1 % (42.0-52.0); HEMOGLOBIN 14.9 g/dl (14.0-18.0); LYMPH # 0.7 10*3/uL (1.3-4.4); LYMPH % 5.5 % (27.0-41.0); MEAN CELL VOLUME 92.8 fl (80.0-94.0); MEAN CORPUSCULAR HGB CONC 32.3 g/dl (33.0-37.0); MEAN PLATELET VOLUME 9.4 fl (9.6-12.3); MONO % 8.2 % (3.0-9.0); NEUT % 82.6 % (47.0-73.0); PLATELET COUNT AUTOMATED 269 10*3/uL (130-400); RED BLOOD COUNT 4.97 10*6/uL (4.50-5.90); RED CELL DISTRI WIDTH 11.9 % (0-14.5); WHITE BLOOD COUNT 12.1 10*3/uL (4.8-10.8)
[2017-06-29 08:00] VITALS: BP 118/80
[2017-06-29 12:00] VITALS: BP 124/70
[2017-06-29 16:00] VITALS: BP 107/54
[2017-06-29 20:00] VITALS: BP 123/73
[2017-06-30] VITALS: BP 129/73
[2017-06-30 08:00] VITALS: BP 128/69
[2017-06-30 12:00] VITALS: BP 116/67
[2017-06-30 16:00] VITALS: BP 127/71
[2017-06-30 20:00] VITALS: BP 122/81
[2017-07-01] VITALS: BP 136/79
[2017-07-01 08:00] VITALS: BP 124/73
[2017-07-01 12:00] VITALS: BP 127/78
[2017-07-01] MEDS ORDERED: DILTIAZEM HCL60 MG PO (12:37)
[2017-07-01] MEDS ORDERED: AMINOPHYLLIN200 MG PO (12:37)
[2017-07-01] MEDS ORDERED: MUCINEX DM 30/61 TAB PO (12:37)
[2017-07-01] MEDS ORDERED: PACERONE200 MG PO (12:37)
[2017-07-01] MEDS ORDERED: FUROSEMIDE40 MG PO (12:37)
[2017-07-01] MEDS ORDERED: ASPIRIN ADULT L81 M2 PO (12:37)
[2017-07-01] MEDS ORDERED: CLOTRIMAZOLE TR10 MG PO (12:37)
[2017-07-01] MEDS ORDERED: ATORVASTATIN CA80 M1 PO (12:37)
[2017-07-01] MEDS ORDERED: XARE20MG PO (12:37)
[2017-07-01] MEDS ORDERED: PREDNISONE50 MG PO (12:37)
[2017-07-01] MEDS ORDERED: VITAMIN D50000 UNIT PO (12:37)
[2017-07-01] MEDS ORDERED: OXYGEN NAS (15:49)
[2017-07-01 16:00] VITALS: BP 135/66
== END 2017-07-01 17:35 | disposition other institution (70) | DRG 871 ==
LOC: ED 06:55 → EDHOLD 09:08 → 5E 09:08 → ICCU 09:08 → EDHOLD 09:12 → ICCU 09:19 → 5E 06-28 16:05
PROVIDERS: Emergency Medicine; Internal Medicine; Internal Medicine Cardiovascular Disease; Internal Medicine Critical Care Medicine; Internal Medicine Hospice and Palliative Medicine
PROC: 5A09357 Assistance with Respiratory Ventilation, Less than 24 Consecutive Hours, Continuous Positive Airway Pressure (ICD-10-PCS; principal; 2017-06-24)
PROC: 5A09357 Assistance with Respiratory Ventilation, Less than 24 Consecutive Hours, Continuous Positive Airway Pressure (ICD-10-PCS; 2017-06-25)
PROC: 5A09357 Assistance with Respiratory Ventilation, Less than 24 Consecutive Hours, Continuous Positive Airway Pressure (ICD-10-PCS; 2017-06-26)
PROC: 5A09357 Assistance with Respiratory Ventilation, Less than 24 Consecutive Hours, Continuous Positive Airway Pressure (ICD-10-PCS; 2017-06-27)
DX: A41.9 Sepsis, unspecified organism (principal); I21.4 Non-ST elevation (NSTEMI) myocardial infarction; E43 Unspecified severe protein-calorie malnutrition; J96.01 Acute respiratory failure with hypoxia; J96.02 Acute respiratory failure with hypercapnia; J14 Pneumonia due to Hemophilus influenzae; E87.2 Acidosis; I50.23 Acute on chronic systolic (congestive) heart failure; E87.8 Other disorders of electrolyte and fluid balance, not elsewhere classified; B37.0 Candidal stomatitis; E87.1 Hypo-osmolality and hyponatremia; I48.1 Persistent atrial fibrillation; J44.9 Chronic obstructive pulmonary disease, unspecified; E80.6 Other disorders of bilirubin metabolism; I48.0 Paroxysmal atrial fibrillation; J20.9 Acute bronchitis, unspecified; R73.9 Hyperglycemia, unspecified; I25.119 Atherosclerotic heart disease of native coronary artery with unspecified angina pectoris; E66.09 Other obesity due to excess calories; Z91.14 Patient's other noncompliance with medication regimen; Z95.1 Presence of aortocoronary bypass graft; Z79.899 Other long term (current) drug therapy; Z87.01 Personal history of pneumonia (recurrent); Z82.49 Family history of ischemic heart disease and other diseases of the circulatory system; I25.2 Old myocardial infarction; Z68.32 Body mass index [BMI] 32.0-32.9, adult

== ENCOUNTER → 2017-07-10 | Outpatient (CLI) | payer MEDICARE, OTHER ==
[~2017-07-10] MED LIST changes: +AMINOPHYLLIN200 MG PO; +CLOTRIMAZOLE TR10 MG PO; +DILTIAZEM HCL60 MG PO; +FUROSEMIDE40 MG PO; +MUCINEX DM 30/61 TAB PO; +OXYGEN NAS; +PACERONE200 MG PO; +PREDNISONE50 MG PO; +VITAMIN D50000 UNIT PO; +XARE20MG PO
== END | disposition home or self-care (01) ==
LOC: RESCLI 00:33
DX: I48.2 Chronic atrial fibrillation (principal); I50.22 Chronic systolic (congestive) heart failure; I25.10 Atherosclerotic heart disease of native coronary artery without angina pectoris; E55.9 Vitamin D deficiency, unspecified; J44.9 Chronic obstructive pulmonary disease, unspecified; E66.09 Other obesity due to excess calories; E78.5 Hyperlipidemia, unspecified; J11.00 Influenza due to unidentified influenza virus with unspecified type of pneumonia; B37.0 Candidal stomatitis

== ENCOUNTER → 2017-08-07 | Outpatient (CLI) | payer MEDICARE, OTHER | END | disposition home or self-care (01) | LOC: RESCLI 01:50 | DX: I25.10 Atherosclerotic heart disease of native coronary artery without angina pectoris (principal); E55.9 Vitamin D deficiency, unspecified; I50.22 Chronic systolic (congestive) heart failure; I48.2 Chronic atrial fibrillation; J44.9 Chronic obstructive pulmonary disease, unspecified; E66.09 Other obesity due to excess calories; E78.5 Hyperlipidemia, unspecified ==

== ENCOUNTER 2017-08-08 21:02 | Emergency (ER) | payer MEDICARE, OTHER ==
[~2017-08-08] VITALS: Ht 175.2 cm; Wt 96.2 kg
[2017-08-08 21:31] LABS: BILIRUBIN 1+ (NEGATIVE); BLOOD 3+ (NEGATIVE); CLARITY TURBID (CLEAR); COLOR RED (YELLOW); GLUCOSE NEGATIVE (NEGATIVE); KETONE TRACE (NEGATIVE); NITRITE POSITIVE (NEGATIVE); PH 6.5 (5.0-9.0); SPECIFIC GRAVITY >= 1.030 (1.005-1.030)
[2017-08-08 21:33] LABS: LEUKO ESTERASE TRACE (NEGATIVE)
[2017-08-08 21:37] LABS: RBC TNTC rbc/hpf (0-2)
[2017-08-08 21:56] LABS: BASO # 0.1 10*3/uL (0.0-0.1); BASO % 0.8 % (0.0-1.0); EOS # 0.2 10*3/uL (0.0-0.4); EOS % 2.8 % (1.0-4.0); HEMATOCRIT 42.5 % (42.0-52.0); HEMOGLOBIN 13.7 g/dl (14.0-18.0); LYMPH # 0.6 10*3/uL (1.3-4.4); LYMPH % 10.1 % (27.0-41.0); MEAN CELL VOLUME 92.8 fl (80.0-94.0); MEAN CORPUSCULAR HGB 29.9 pg (27.0-31.0); MEAN CORPUSCULAR HGB CONC 32.2 g/dl (33.0-37.0); MEAN PLATELET VOLUME 9.2 fl (9.6-12.3); MONO # 0.9 10*3/uL (0.1-1.0); MONO % 14.1 % (3.0-9.0); NEUT # 4.4 10*3/uL (2.3-7.9); NEUT % 71.9 % (47.0-73.0); PLATELET COUNT AUTOMATED 157 10*3/uL (130-400); RED BLOOD COUNT 4.58 10*6/uL (4.50-5.90); RED CELL DISTRI WIDTH 13.2 % (0-14.5); WHITE BLOOD COUNT 6.2 10*3/uL (4.8-10.8)
[2017-08-08 22:06] LABS: INTERNATIONAL NORM RATIO 1.2 (2.0-3.5)
[2017-08-08 22:13] LABS: ALBUMIN 3.5 gm/dl (3.1-4.5); ALKALINE PHOSPHATASE 124 U/L (45-117); BUN 17 mg/dl (7-24); CHLORIDE 101 mmol/L (98-107); CREATININE 0.99 mg/dL (0.70-1.30); LIPASE 124 U/L (73-393); POTASSIUM 3.9 mmol/L (3.5-5.1); SGOT/AST 21 IU/L (3-35); SGPT/ALT 19 U/L (12-78); SODIUM 139 mmol/L (136-145); TOTAL PROTEIN 7.1 gm/dL (6.4-8.2)
[2017-08-08] MEDS ORDERED: AMINOPHYLLIN200 MG PO (22:30)
== END 2017-08-08 22:40 | disposition home or self-care (01) ==
LOC: ED 21:02
PROVIDERS: Physician Assistant
DX: N39.0 Urinary tract infection, site not specified (principal); R31.9 Hematuria, unspecified; I25.2 Old myocardial infarction; I48.91 Unspecified atrial fibrillation; Z95.1 Presence of aortocoronary bypass graft; Z79.82 Long term (current) use of aspirin; Z79.899 Other long term (current) drug therapy

== ENCOUNTER → 2018-07-27 | Outpatient (CLI) | payer MEDICARE, OTHER | END | disposition home or self-care (01) | LOC: RESCLI 02:47 | DX: I25.10 Atherosclerotic heart disease of native coronary artery without angina pectoris (principal); E55.9 Vitamin D deficiency, unspecified; I50.22 Chronic systolic (congestive) heart failure; I48.2 Chronic atrial fibrillation; J44.9 Chronic obstructive pulmonary disease, unspecified; E66.09 Other obesity due to excess calories; E78.5 Hyperlipidemia, unspecified; Z79.899 Other long term (current) drug therapy ==

== ENCOUNTER → 2018-08-15 | Day surgery (SDC) | payer MEDICARE, OTHER ==
[~2018-08-15] VITALS: Ht 175.2 cm; Wt 104.3 kg
--- NOTE | ~2018-08-15 | O ---
[place], [place] OPERATIVE NOTE NAME: SORAIDA ACOSTA UNIT #: [id number] ROOM: DOCTOR: ESTEBAN SANDERS MD BIRTHDATE: [birth year] DOS: 08/15/2018 PREOPERATIVE DIAGNOSIS: Cataract, right eye. POSTOPERATIVE DIAGNOSIS: Cataract, right eye. OPERATION: Extracapsular cataract extraction by phacoemulsification with posterior chamber intraocular lens implantation, right eye. ANESTHESIA: Monitored standby. OPERATIVE FINDINGS AND PROCEDURE: 2% Xylocaine topical anesthetic gel was applied to the eye in the preop area. The patient was taken to the operating room and prepped and draped in the standard fashion for sterile intraocular surgery. A time out procedure was performed verifying correct patient, correct site and corrects lens with Refugio Sanders M.D. The operating microscope was swung into position and the lid speculum was inserted. Using a Vira paracentesis blade, a paracentesis was made through clear cornea. Air was instilled into the anterior chamber with a cannula followed by the instillation of Trypan Blue to stain the anterior capsule. Viscoelastic was used to fill the anterior chamber. Using a metal keratome a 2.4 mm self-sealing clear corneal cataract incision was made temporally at the limbus. Using a pre-bent 25 gauge cystotome needle, a standard continuous curvilinear capsulorrhexis was performed. The anterior capsule was removed with forceps. The lens nucleus was hydrodissected and phacoemulsified in the posterior chamber. Cortical material was removed with the irrigation aspiration hand piece and the posterior capsule was then polished with a curet under irrigation. The posterior chamber and capsular bag were filled with viscoelastic. A posterior chamber intraocular lens manufactured by: [employer], Model #[id number], and 23.0 diopters in strength were then inserted into the posterior chamber and within the capsular bag using the lens cartridge and injector system. Viscoelastic was removed using the irrigation aspiration handpiece. The anterior chamber was filled with balanced salt solution through the paracentesis. Both the paracentesis site and cataract incisions were hydrated with BSS and verified to be water-tight and self-sealing. Cefuroxime 1 mg/0.1 mL was injected into the anterior chamber through the paracentesis site. The incision checked to be water-tight using a Weck-Crystal sponge. The integrity of the cataract wound and ocular tension were checked. Lid speculum and drapes were removed. The patient was transferred from the operating room to the recovery room in satisfactory condition. [place], [place] OPERATIVE NOTE NAME: SORAIDA ACOSTA UNIT #: [id number] ROOM: DOCTOR: ESTEBAN SANDERS MD BIRTHDATE: [birth year] ESTEBAN SANDERS MD CM:OPRECORD:OPERATIVE NOTE [id number] ESTEBAN SANDERS MD 08/15/18 1109 interface
[2018-08-15 08:50] VITALS: BP 152/76
[2018-08-15 10:15] VITALS: BP 165/91
[2018-08-15 10:28] VITALS: BP 147/86
[2018-08-15 10:43] VITALS: BP 139/80
== END | disposition home or self-care (01) ==
LOC: SDC 08-10 12:30
DX: H25.811 Combined forms of age-related cataract, right eye (principal); I25.10 Atherosclerotic heart disease of native coronary artery without angina pectoris; I11.0 Hypertensive heart disease with heart failure; I50.9 Heart failure, unspecified; E78.5 Hyperlipidemia, unspecified; E66.9 Obesity, unspecified; I25.2 Old myocardial infarction; Z95.1 Presence of aortocoronary bypass graft; Z95.818 Presence of other cardiac implants and grafts; Z86.14 Personal history of Methicillin resistant Staphylococcus aureus infection; Z98.890 Other specified postprocedural states; Z79.899 Other long term (current) drug therapy; Z79.01 Long term (current) use of anticoagulants; Z79.82 Long term (current) use of aspirin; Z68.33 Body mass index [BMI] 33.0-33.9, adult

== ENCOUNTER → 2018-09-19 | Outpatient (CLI) | payer MEDICARE, OTHER ==
--- NOTE | ~2018-09-19 | EKG ---
[place], [place] ELECTROCARDIOGRAM REPORT NAME: SORAIDA ACOSTA UNIT #: [id number] ROOM: DOCTOR: EPIPHANY DRAFT REPORT BIRTHDATE: [birth year] [facility] Test Date: 2018-09-19 Test Time: 08:15:00 Pat Name: SORAIDA ACOSTA Department: Room: Gender: [employer] Super[employer]: : 1940 Requested By: ALPESH RILEY Order Number: [id number] Reading MD: Alpesh Riley MD Measurements Intervals [place] Rate: 73 P: 60 IN: 223 QRS: -98 QRSD: 157 T: 56 QT: 435 QTc: 480 Interpretive Statements Sinus rhythm Prolonged IN interval Right bundle branch block Inferior infarct, old Lateral leads are also involved Electronically Signed On 09-22-2018 11:21:28 PDT by Alpesh Riley MD CM:EKGRPT:ELECTROCARDIOGRAM REPORT [id number] ALPESH RILEY MD EPIPHANY DRAFT REPORT ALPESH RILEY MD
[2018-09-19 08:31] LABS: BASO # 0.1 10*3/uL (0.0-0.1); BASO % 0.9 % (0.0-1.0); EOS # 0.2 10*3/uL (0.0-0.4); EOS % 2.9 % (1.0-4.0); HEMATOCRIT 49.9 % (42.0-52.0); HEMOGLOBIN 16.1 g/dl (14.0-18.0); LYMPH # 0.8 10*3/uL (1.3-4.4); LYMPH % 11.7 % (27.0-41.0); MEAN CELL VOLUME 95.6 fl (80.0-94.0); MEAN CORPUSCULAR HGB 30.8 pg (27.0-31.0); MEAN CORPUSCULAR HGB CONC 32.3 g/dl (33.0-37.0); MEAN PLATELET VOLUME 9.3 fl (9.6-12.3); MONO # 0.7 10*3/uL (0.1-1.0); MONO % 10.5 % (3.0-9.0); NEUT # 4.8 10*3/uL (2.3-7.9); NEUT % 73.8 % (47.0-73.0); PLATELET COUNT AUTOMATED 170 10*3/uL (130-400); RED BLOOD COUNT 5.22 10*6/uL (4.50-5.90); RED CELL DISTRI WIDTH 12.3 % (0-14.5); WHITE BLOOD COUNT 6.5 10*3/uL (4.8-10.8)
[2018-09-19 08:48] LABS: ALBUMIN 3.6 gm/dl (3.1-4.5); ALKALINE PHOSPHATASE 121 U/L (45-117); BUN 22 mg/dl (7-24); CHLORIDE 106 mmol/L (98-107); CHOLESTEROL 131 mg/dL (<200); SGOT/AST 19 IU/L (3-35); SGPT/ALT 18 U/L (12-78); SODIUM 140 mmol/L (136-145); TOTAL PROTEIN 7.5 gm/dL (6.4-8.2); TRIGLYCERIDES 80 mg/dl (<150); VLDL CHOLESTEROL 16 mg/dL (6-40)
[2018-09-19 08:49] LABS: HDL CHOLESTEROL 61 mg/dl (40-60); LDL CHOLESTEROL 54 mg/dL (9-159)
[2018-09-19 09:47] LABS: VITAMIN D, 25-HYDROXY 18.5 ng/mL (30-100)
== END | disposition home or self-care (01) ==
LOC: RESCLI 00:26
PROVIDERS: Internal Medicine
DX: Z01.810 Encounter for preprocedural cardiovascular examination (principal); I48.91 Unspecified atrial fibrillation; I48.0 Paroxysmal atrial fibrillation; I25.10 Atherosclerotic heart disease of native coronary artery without angina pectoris; I11.0 Hypertensive heart disease with heart failure; I50.22 Chronic systolic (congestive) heart failure; J44.9 Chronic obstructive pulmonary disease, unspecified; E78.5 Hyperlipidemia, unspecified; Z79.899 Other long term (current) drug therapy; Z88.8 Allergy status to other drugs, medicaments and biological substances

== ENCOUNTER → 2018-12-12 | Outpatient (CLI) | payer MEDICARE, OTHER | END | disposition home or self-care (01) | LOC: RESCLI 01:53 | DX: I25.10 Atherosclerotic heart disease of native coronary artery without angina pectoris (principal); E55.9 Vitamin D deficiency, unspecified; I48.2 Chronic atrial fibrillation; I11.0 Hypertensive heart disease with heart failure; I50.22 Chronic systolic (congestive) heart failure; J44.9 Chronic obstructive pulmonary disease, unspecified; E66.09 Other obesity due to excess calories; E78.5 Hyperlipidemia, unspecified; Z79.899 Other long term (current) drug therapy ==

== ENCOUNTER → 2021-05-12 | Day surgery (SDC) | payer OTHER ==
[~2021-05-12] VITALS: Ht 175.2 cm; Wt 104.3 kg
[2021-05-12 10:30] VITALS: BP 146/68
[2021-05-12 12:08] VITALS: BP 130/67
[2021-05-12 12:23] VITALS: BP 128/78
[2021-05-12 12:38] VITALS: BP 132/73
== END | disposition home or self-care (01) ==
LOC: SDC 05-07 11:00
PROVIDERS: ATTEND Ophthalmology
DX: H25.812 Combined forms of age-related cataract, left eye (principal); I25.2 Old myocardial infarction; I25.10 Atherosclerotic heart disease of native coronary artery without angina pectoris; Z95.1 Presence of aortocoronary bypass graft; Z87.891 Personal history of nicotine dependence; Z20.822 Contact with and (suspected) exposure to COVID-19; Z79.899 Other long term (current) drug therapy

== ENCOUNTER 2023-07-23 11:55 | Emergency (ER) | payer OTHER, MEDICAID ==
[~2023-07-23] VITALS: Ht 175.2 cm
[~2023-07-23 11:55] MED LIST changes: +ATORVASTATIN CA40 M1 PO; +METOPROLOL SUCC25 M2 PO; +VITAMIN D350 MCG PO
[2023-07-23] MEDS ORDERED: SODIUM POLYSTYRENE SULFONATE 15 GM/60 ML BOT PO ONE (12:25)
[2023-07-23 12:46] LABS: BILIRUBIN Negative (Negative); BLOOD Negative (Negative); CLARITY Clear (Clear); COLOR Dark Yellow (Yellow); GLUCOSE Trace (Negative); KETONE 1+ (Negative); LEUKO ESTERASE Negative (Negative); NITRITE Negative (Negative); PH 6.5 (4.5-8.0); SPECIFIC GRAVITY 1.025 (1.001-1.030)
[2023-07-23 12:56] LABS: BACTERIA TRACE; EPITHELIAL CELLS 0-2; MUCOUS TRACE
[2023-07-23 13:01] LABS: HEMATOCRIT 49.2 % (42.0-52.0); MEAN CELL VOLUME 92.8 fl (80.0-94.0); MEAN CORPUSCULAR HGB 30.2 pg (27.0-31.0); MEAN CORPUSCULAR HGB CONC 32.5 g/dl (33.0-37.0); MEAN PLATELET VOLUME 9.4 fl (9.6-12.3); PLATELET COUNT AUTOMATED 159 10*3/uL (130-400); RED CELL DISTRI WIDTH 12.1 % (0-14.5); WHITE BLOOD COUNT 14.9 10*3/uL (4.8-10.8)
[2023-07-23 13:02] LABS: MANUAL DIFF REFLEX YES
[2023-07-23 13:20] LABS: OVALOCYTES FEW; PLATELET SUFFICIENCY NORMAL (NORMAL); POLYCHROMASIA SLIGHT; TOTAL CELLS COUNTED 100 #CELLS
[2023-07-23 13:21] LABS: BURR CELLS FEW
[2023-07-23 13:23] LABS: ALKALINE PHOSPHATASE 111 U/L (46-116); BUN 16 mg/dl (9-23); CHLORIDE 99 mmol/L (98-107); LIPASE 38 U/L (12-53); POTASSIUM 3.8 mmol/L (3.4-5.1); SGPT/ALT 15 U/L (5-49); TOTAL PROTEIN 7.9 gm/dL (6.0-8.0)
[2023-07-23] MEDS ORDERED: Ceftriaxone Sodium 1 GM/10 ML SYR IV ONE (14:10)
[2023-07-23] MEDS ORDERED: MORPHINE Sulfate 2 MG/ML SYR IV ONE (14:25)
[2023-07-23] MEDS ORDERED: Piperacillin Sodium/Tazobact 50 ML IV ONE (14:25)
[2023-07-25] MEDS ORDERED: SODIUM CHLORIDE 0.9% 1,000 ML IV ONE (07:20)
== END 2023-07-25 17:22 | disposition short-term general hospital (02) ==
LOC: ED 11:55
PROVIDERS: Physician Assistant Medical
DX: K81.0 Acute cholecystitis (principal); K59.00 Constipation, unspecified; R11.0 Nausea; I48.91 Unspecified atrial fibrillation; I25.10 Atherosclerotic heart disease of native coronary artery without angina pectoris; J44.9 Chronic obstructive pulmonary disease, unspecified; I25.2 Old myocardial infarction; I50.9 Heart failure, unspecified; Z95.5 Presence of coronary angioplasty implant and graft; Z98.890 Other specified postprocedural states

== ENCOUNTER 2024-02-12 10:15 | Inpatient (IN) | payer OTHER ==
[~2024-02-12] VITALS: Ht 175.2 cm; Wt 107.2 kg
[2024-02-12 10:19] VITALS: BP 156/102
[2024-02-12 10:50] LABS: BASO % 0.8 % (0.0-1.0); EOS % 0.6 % (1.0-4.0); HEMATOCRIT 47.5 % (42.0-52.0); MEAN CELL VOLUME 101.1 fl (80.0-94.0); MEAN CORPUSCULAR HGB 30.4 pg (27.0-31.0); MEAN CORPUSCULAR HGB CONC 30.1 g/dl (33.0-37.0); MEAN PLATELET VOLUME 10.1 fl (9.6-12.3); MONO # 0.6 10*3/uL (0.1-1.0); MONO % 11.3 % (3.0-9.0); NEUT # 4.2 10*3/uL (2.3-7.9); PLATELET COUNT AUTOMATED 122 10*3/uL (130-400); WHITE BLOOD COUNT 5.2 10*3/uL (4.8-10.8)
[2024-02-12 11:00] LABS: ACT PARTIAL THROMBO TIME 26.8 SECONDS (20.0-32.1)
[2024-02-12 11:12] LABS: BUN 21 mg/dl (9-23); CHLORIDE 104 mmol/L (98-107); CPK 142 U/L (34-171); POTASSIUM 4.5 mmol/L (3.4-5.1)
[2024-02-12 11:14] LABS: ETHYL ALCOHOL < 3.0 mg/dl (<3)
[2024-02-12] MEDS ORDERED: SODIUM CHLORIDE 0.9% 1,000 ML IV ONE (11:35)
[2024-02-12] MEDS ORDERED: Ceftriaxone Sodium 1 GM/10 ML SYR IV ONE (12:10)
[2024-02-12] MEDS ORDERED: AZITHROMYCIN 250 MG TAB PO ONE (12:10)
[2024-02-12] MEDS ORDERED: SODIUM CHLORIDE 0.9% 1,000 ML IV SCH ×2 (12:10→15:40)
[2024-02-12 12:46] LABS: BILIRUBIN 2+ (Negative); BLOOD 1+ (Negative); CLARITY Cloudy (Clear); COLOR Orange (Yellow); GLUCOSE Negative (Negative); KETONE Negative (Negative); LEUKO ESTERASE 1+ (Negative); NITRITE Positive (Negative); SPECIFIC GRAVITY >= 1.030 (1.001-1.030)
[2024-02-12 13:00] LABS: BACTERIA TRACE; CALCIUM OXALATE CRYSTALS 2+; EPITHELIAL CELLS 0-2; MUCOUS 2+
[2024-02-12 13:01] LABS: URINE AMPHETAMINES Negative (1000ng/ml); URINE BARBITURATES Negative (200ng/ml); URINE BENZODIAZEPINES Negative (200ng/ml); URINE CANNABINOIDS (THC) Negative (50ng/ml); URINE COCAINE Negative (300ng/ml); URINE METHADONE Negative (300ng/ml); URINE OPIATES Negative (300ng/ml); URINE PHENCYCLIDINE Negative (25ng/ml)
[2024-02-12] MEDS ORDERED: ELIQUIS5 M1 PO (13:15)
[2024-02-12 13:59] VITALS: BP 149/111
[2024-02-12] MEDS ORDERED: BISACODYL 10 MG SUPP R PRN (15:40)
[2024-02-12] MEDS ORDERED: Ondansetron Hydrochloride 4 MG/2 ML VIAL IV PRN (15:40)
[2024-02-12] MEDS ORDERED: ACETAMINOPHEN 325 MG TAB PO PRN (15:40)
[2024-02-12] MEDS ORDERED: Acetaminophen/Hydrocodone 5 MG/325 MG TABLET PO PRN (15:40)
[2024-02-12] MEDS ORDERED: ACETAMINOPHEN 650 MG SUPP R PRN (15:40)
[2024-02-12] MEDS ORDERED: Magnesium Hydroxide 30 ML UDC PO PRN (15:40)
[2024-02-12] MEDS ORDERED: BISACODYL 5 MG TAB PO PRN (15:40)
[2024-02-12 20:00] VITALS: BP 123/66
[2024-02-12] MEDS ORDERED: ATORVASTATIN CALCIUM 40 MG TABLET PO SCH (22:00)
[2024-02-12 23:10] VITALS: BP 135/81
[2024-02-13] MEDS ORDERED: FUROSEMIDE 20 MG/2 ML VIAL IV ONE (01:50)
[2024-02-13 06:21] LABS: BASO % 0.6 % (0.0-1.0); EOS # 0.1 10*3/uL (0.0-0.4); EOS % 2.3 % (1.0-4.0); HEMATOCRIT 43.4 % (42.0-52.0); MEAN CELL VOLUME 102.8 fl (80.0-94.0); MEAN CORPUSCULAR HGB CONC 30.2 g/dl (33.0-37.0); MEAN PLATELET VOLUME 10.4 fl (9.6-12.3); MONO # 0.6 10*3/uL (0.1-1.0); MONO % 11.8 % (3.0-9.0); NEUT # 3.7 10*3/uL (2.3-7.9); NEUT % 77.1 % (47.0-73.0); PLATELET COUNT AUTOMATED 111 10*3/uL (130-400); RED BLOOD COUNT 4.22 10*6/uL (4.50-5.90); RED CELL DISTRI WIDTH 16.1 % (0-14.5); WHITE BLOOD COUNT 4.8 10*3/uL (4.8-10.8)
[2024-02-13 08:00] VITALS: BP 135/65
[2024-02-13 08:27] LABS: ALKALINE PHOSPHATASE 141 U/L (46-116); BUN 19 mg/dl (9-23); CHLORIDE 103 mmol/L (98-107); CHOLESTEROL 129 mg/dL (<200); LDL CHOLESTEROL 80 mg/dL (9-159); POTASSIUM 4.7 mmol/L (3.4-5.1); SGPT/ALT 12 U/L (5-49); TOTAL PROTEIN 6.6 gm/dL (6.0-8.0); TRIGLYCERIDES 74 mg/dl (<150)
[2024-02-13 09:24] LABS: VITAMIN D, 25-HYDROXY 24.8 ng/mL (30-100)
[2024-02-13 09:40] LABS: CPK 98 U/L (34-171)
[2024-02-13] MEDS ORDERED: APIXABAN 5 MG TAB PO SCH ×2 (10:00→22:00)
[2024-02-13] MEDS ORDERED: METOPROLOL SUCCINATE XR 25 MG TAB PO SCH (10:00)
[2024-02-13 12:00] VITALS: BP 118/76
[2024-02-13] MEDS ORDERED: AZITHROMYCIN 250 ML IV SCH (12:00)
[2024-02-13] MEDS ORDERED: FUROSEMIDE 40 MG/4 ML VIAL IV SCH (12:35)
[2024-02-13] MEDS ORDERED: Ceftriaxone Sodium 1 GM in SYRINGE INFUSION 10 ML IV SCH ×2 (13:00→14:00)
[2024-02-13 16:00] VITALS: BP 130/77
[2024-02-13 20:00] VITALS: BP 117/68
[2024-02-14] VITALS: BP 109/83
[2024-02-14 06:03] LABS: BASO % 0.6 % (0.0-1.0); EOS # 0.1 10*3/uL (0.0-0.4); EOS % 2.8 % (1.0-4.0); MEAN CELL VOLUME 100.5 fl (80.0-94.0); MEAN CORPUSCULAR HGB 31.6 pg (27.0-31.0); MEAN CORPUSCULAR HGB CONC 31.4 g/dl (33.0-37.0); MEAN PLATELET VOLUME 10.2 fl (9.6-12.3); MONO # 0.7 10*3/uL (0.1-1.0); MONO % 15.1 % (3.0-9.0); NEUT # 3.3 10*3/uL (2.3-7.9); NEUT % 71.6 % (47.0-73.0); PLATELET COUNT AUTOMATED 111 10*3/uL (130-400); RED BLOOD COUNT 4.18 10*6/uL (4.50-5.90); RED CELL DISTRI WIDTH 15.9 % (0-14.5); WHITE BLOOD COUNT 4.7 10*3/uL (4.8-10.8)
[2024-02-14 06:20] LABS: ALKALINE PHOSPHATASE 132 U/L (46-116); BUN 18 mg/dl (9-23); CHLORIDE 100 mmol/L (98-107); POTASSIUM 3.9 mmol/L (3.4-5.1); SGPT/ALT 12 U/L (5-49); TOTAL PROTEIN 6.4 gm/dL (6.0-8.0)
[2024-02-14 08:00] VITALS: BP 120/75
[2024-02-14] MEDS ORDERED: FOLIC ACID 1 MG TAB PO SCH (10:00)
[2024-02-14] MEDS ORDERED: Cholecalciferol 2,000 UNIT TABLET (50 MCG) PO SCH (10:00)
[2024-02-14 12:00] VITALS: BP 106/66
[2024-02-14 16:00] VITALS: BP 110/61
[2024-02-14 20:00] VITALS: BP 105/71
[2024-02-15] VITALS: BP 95/60
[2024-02-15 08:00] VITALS: BP 101/61
[2024-02-15 12:00] VITALS: BP 99/55
[2024-02-15 15:02] LABS: BILIRUBIN Negative (Negative); BLOOD 3+ (Negative); CLARITY Cloudy (Clear); COLOR Dark Yellow (Yellow); GLUCOSE Negative (Negative); KETONE Negative (Negative); LEUKO ESTERASE Trace (Negative); NITRITE Negative (Negative)
[2024-02-15 15:10] LABS: BACTERIA 1+; FINE GRANULAR CAST 0-2; MUCOUS 1+; RBC TNTC rbc/hpf (0-2)
[2024-02-15 16:00] VITALS: BP 105/62
[2024-02-15] MEDS ORDERED: Albuterol Sulf/Ipratropium 3 ML VIAL NEB SCH (16:10)
[2024-02-15 20:00] VITALS: BP 107/57
[2024-02-15] MEDS ORDERED: FUROSEMIDE 20 MG/2 ML VIAL IV SCH (20:00)
[2024-02-15] MEDS ORDERED: GUAIFENESIN 600 MG TAB ER PO SCH (22:00)
[2024-02-16] VITALS: BP 110/59
[2024-02-16 06:52] LABS: BASO % 0.7 % (0.0-1.0); EOS # 0.2 10*3/uL (0.0-0.4); EOS % 3.3 % (1.0-4.0); HEMATOCRIT 41.5 % (42.0-52.0); MEAN CELL VOLUME 101.7 fl (80.0-94.0); MEAN CORPUSCULAR HGB 30.6 pg (27.0-31.0); MEAN CORPUSCULAR HGB CONC 30.1 g/dl (33.0-37.0); MONO # 0.6 10*3/uL (0.1-1.0); MONO % 13.6 % (3.0-9.0); NEUT # 3.3 10*3/uL (2.3-7.9); NEUT % 73.6 % (47.0-73.0); PLATELET COUNT AUTOMATED 119 10*3/uL (130-400); RED BLOOD COUNT 4.08 10*6/uL (4.50-5.90); RED CELL DISTRI WIDTH 15.5 % (0-14.5); WHITE BLOOD COUNT 4.5 10*3/uL (4.8-10.8)
[2024-02-16 07:20] LABS: ALKALINE PHOSPHATASE 177 U/L (46-116); BUN 17 mg/dl (9-23); CHLORIDE 95 mmol/L (98-107); POTASSIUM 3.9 mmol/L (3.4-5.1); SGPT/ALT 13 U/L (5-49); TOTAL PROTEIN 6.5 gm/dL (6.0-8.0)
[2024-02-16 08:00] VITALS: BP 127/86
[2024-02-16] MEDS ORDERED: METOPROLOL SUCCINATE XR 25 MG TAB PO SCH (10:00)
[2024-02-16 12:00] VITALS: BP 119/66
[2024-02-16 16:00] VITALS: BP 114/57
[2024-02-16 20:00] VITALS: BP 123/58
[2024-02-17] VITALS: BP 124/60
[2024-02-17 06:39] LABS: ALKALINE PHOSPHATASE 163 U/L (46-116); BUN 17 mg/dl (9-23); CHLORIDE 95 mmol/L (98-107); POTASSIUM 3.1 mmol/L (3.4-5.1); SGPT/ALT 13 U/L (5-49); TOTAL PROTEIN 6.5 gm/dL (6.0-8.0)
[2024-02-17 08:00] VITALS: BP 112/57
[2024-02-17] MEDS ORDERED: POTASSIUM CHLORIDE 20 MEQ TAB PO ONE (08:45)
[2024-02-17 12:00] VITALS: BP 111/65
[2024-02-17 16:00] VITALS: BP 106/76
[2024-02-17 16:44] LABS: ABG O2 SATURATION 93.2 % (94.0-98.0); ARTERIAL BLOOD GAS PH 7.405 (7.350-7.450); ARTERIAL BLOOD GAS PO2 65.1 mmHg (83.0-108.0)
[2024-02-17 16:49] LABS: ABG BASE EXCESS 12.1 mmol/L (-2.0-3.0)
[2024-02-17 20:00] VITALS: BP 107/79; BP 127/66
[2024-02-18] VITALS: BP 103/42
[2024-02-18 06:35] LABS: BASO # 0.1 10*3/uL (0.0-0.1); BASO % 1.1 % (0.0-1.0); EOS # 0.2 10*3/uL (0.0-0.4); EOS % 3.9 % (1.0-4.0); HEMATOCRIT 40.5 % (42.0-52.0); MEAN CELL VOLUME 100.5 fl (80.0-94.0); MEAN CORPUSCULAR HGB 30.5 pg (27.0-31.0); MEAN CORPUSCULAR HGB CONC 30.4 g/dl (33.0-37.0); MEAN PLATELET VOLUME 10.2 fl (9.6-12.3); MONO # 0.6 10*3/uL (0.1-1.0); MONO % 13.9 % (3.0-9.0); NEUT # 3.1 10*3/uL (2.3-7.9); NEUT % 71.1 % (47.0-73.0); PLATELET COUNT AUTOMATED 116 10*3/uL (130-400); RED BLOOD COUNT 4.03 10*6/uL (4.50-5.90); RED CELL DISTRI WIDTH 15.5 % (0-14.5); WHITE BLOOD COUNT 4.4 10*3/uL (4.8-10.8)
[2024-02-18 06:51] LABS: BUN 16 mg/dl (9-23); CHLORIDE 94 mmol/L (98-107); POTASSIUM 3.3 mmol/L (3.4-5.1)
[2024-02-18 08:00] VITALS: BP 97/35
[2024-02-18] MEDS ORDERED: POTASSIUM CHLORIDE 20 MEQ TAB PO ONE (08:10)
[2024-02-18] MEDS ORDERED: SPIRONOLACTONE 25 MG TAB PO SCH (10:00)
[2024-02-18 11:05] LABS: HBSAG Negative (Negative); HEP B CORE AB, IGM Negative (Negative); HEPATITIS C ANTIBODY Non Reactive (Non Reactive)
[2024-02-18 12:00] VITALS: BP 115/80
[2024-02-18 16:00] VITALS: BP 118/78
[2024-02-18 20:00] VITALS: BP 101/64
[2024-02-19] VITALS: BP 98/78
[2024-02-19 06:35] LABS: BASO % 0.9 % (0.0-1.0); EOS # 0.2 10*3/uL (0.0-0.4); EOS % 3.4 % (1.0-4.0); HEMATOCRIT 42.2 % (42.0-52.0); MEAN CELL VOLUME 99.1 fl (80.0-94.0); MEAN CORPUSCULAR HGB CONC 31.3 g/dl (33.0-37.0); MONO # 0.6 10*3/uL (0.1-1.0); MONO % 14.7 % (3.0-9.0); NEUT # 3.1 10*3/uL (2.3-7.9); NEUT % 70.5 % (47.0-73.0); PLATELET COUNT AUTOMATED 117 10*3/uL (130-400); RED BLOOD COUNT 4.26 10*6/uL (4.50-5.90); RED CELL DISTRI WIDTH 15.9 % (0-14.5); WHITE BLOOD COUNT 4.4 10*3/uL (4.8-10.8)
[2024-02-19 06:58] LABS: BUN 15 mg/dl (9-23); CHLORIDE 93 mmol/L (98-107); POTASSIUM 3.5 mmol/L (3.4-5.1)
[2024-02-19 08:00] VITALS: BP 123/68
[2024-02-19] MEDS ORDERED: SPIRONOLACTONE 25 MG TAB PO SCH (10:00)
[2024-02-19] MEDS ORDERED: SPIRONOLACTONE 25 MG TAB PO ONE (11:40)
[2024-02-19 12:00] VITALS: BP 120/68
[2024-02-19 16:00] VITALS: BP 118/52
[2024-02-19 20:00] VITALS: BP 117/77
[2024-02-20] VITALS: BP 96/41
[2024-02-20 06:33] LABS: ACT PARTIAL THROMBO TIME 30.3 SECONDS (20.0-32.1)
[2024-02-20 06:42] LABS: BASO % 0.8 % (0.0-1.0); EOS # 0.1 10*3/uL (0.0-0.4); EOS % 2.9 % (1.0-4.0); HEMATOCRIT 41.7 % (42.0-52.0); MEAN CELL VOLUME 100.5 fl (80.0-94.0); MEAN CORPUSCULAR HGB 30.1 pg (27.0-31.0); MEAN PLATELET VOLUME 10.8 fl (9.6-12.3); MONO # 0.7 10*3/uL (0.1-1.0); MONO % 15.1 % (3.0-9.0); NEUT # 3.5 10*3/uL (2.3-7.9); NEUT % 73.9 % (47.0-73.0); PLATELET COUNT AUTOMATED 116 10*3/uL (130-400); RED BLOOD COUNT 4.15 10*6/uL (4.50-5.90); RED CELL DISTRI WIDTH 15.8 % (0-14.5); WHITE BLOOD COUNT 4.8 10*3/uL (4.8-10.8)
[2024-02-20 07:25] LABS: ALKALINE PHOSPHATASE 183 U/L (46-116); BUN 19 mg/dl (9-23); CHLORIDE 91 mmol/L (98-107); POTASSIUM 3.7 mmol/L (3.4-5.1); SGPT/ALT 17 U/L (5-49); TOTAL PROTEIN 6.8 gm/dL (6.0-8.0)
[2024-02-20 08:00] VITALS: BP 132/69
[2024-02-20 12:00] VITALS: BP 121/66
[2024-02-20 15:26] LABS: BF LYMPHOCYTES 40 %; BF MACROPHAGES 45 %; BF MESOTHELIALS 3 %; BF NEUTROPHILS 12 %
[2024-02-20 16:00] VITALS: BP 108/64; BP 89/55
[2024-02-20 20:00] VITALS: BP 116/74
[2024-02-21] VITALS: BP 107/74
[2024-02-21 06:54] LABS: ALKALINE PHOSPHATASE 217 U/L (46-116); BUN 22 mg/dl (9-23); CHLORIDE 91 mmol/L (98-107); POTASSIUM 3.8 mmol/L (3.4-5.1); SGPT/ALT 18 U/L (5-49); TOTAL PROTEIN 6.7 gm/dL (6.0-8.0)
[2024-02-21 08:00] VITALS: BP 125/72
[2024-02-21] MEDS ORDERED: APIXABAN 5 MG TAB PO SCH (10:00)
[2024-02-21] MEDS ORDERED: ALDACTONE25 MG PO (11:28)
[2024-02-21] MEDS ORDERED: VITAMIN D350 MCG PO (11:28)
[2024-02-21] MEDS ORDERED: METOPROLOL SUCC25 M2 PO (11:28)
[2024-02-21] MEDS ORDERED: LASIX40 MG PO (11:28)
[2024-02-21] MEDS ORDERED: ELIQUIS5 M1 PO (11:28)
[2024-02-21] MEDS ORDERED: Ipratropium Brom3 ML NEB (11:28)
[2024-02-21 12:00] VITALS: BP 112/85
[2024-02-21 16:07] LABS: ACID FAST SPEC PROCESSING Direct Inoculation (.)
== END 2024-02-21 14:30 | DRG 871 ==
LOC: ED 10:15 → EDHOLD 13:39 → 4E 13:39 → EDHOLD 13:40 → 4E 21:16
PROVIDERS: Internal Medicine; Occupational Therapist; Student in an Organized Health Care Education/Training Program; ADMIT Internal Medicine; ATTEND Internal Medicine
PROC: 0W9G3ZZ Drainage of Peritoneal Cavity, Percutaneous Approach (ICD-10-PCS; principal; 2024-02-20)
DX: A41.9 Sepsis, unspecified organism (principal); I50.23 Acute on chronic systolic (congestive) heart failure; J69.0 Pneumonitis due to inhalation of food and vomit; J96.01 Acute respiratory failure with hypoxia; N30.00 Acute cystitis without hematuria; M62.82 Rhabdomyolysis; R18.8 Other ascites; D61.818 Other pancytopenia; J98.11 Atelectasis; K76.6 Portal hypertension; K74.60 Unspecified cirrhosis of liver; R65.20 Severe sepsis without septic shock; E66.9 Obesity, unspecified; R73.9 Hyperglycemia, unspecified; I25.10 Atherosclerotic heart disease of native coronary artery without angina pectoris; I48.91 Unspecified atrial fibrillation; K80.20 Calculus of gallbladder without cholecystitis without obstruction; Z95.1 Presence of aortocoronary bypass graft; Z82.49 Family history of ischemic heart disease and other diseases of the circulatory system; Z79.899 Other long term (current) drug therapy